=== PATIENT | male | born 1970 | race Native Hawaiian/Other Pacific Islander ===

== ENCOUNTER 2017-05-22 06:11 | Emergency (ER) | payer OTHER ==
[~2017-05-22] VITALS: Ht 167.6 cm; Wt 74.8 kg
[2017-05-22 06:14] VITALS: TEMP 98.5
[2017-05-22 07:05] LABS: POTASSIUM 3.8 mmol/L (3.6-5.2); SODIUM 134 mmol/L (136-145)
[2017-05-22 07:41] VITALS: BP 132/90
== END 2017-05-22 07:43 | disposition home or self-care (01) ==
LOC: ED 06:11
PROVIDERS: Specialist
DX: M10.9 Gout, unspecified (principal)
CPT/HCPCS: 36415; 80048; 84550; 99282

== ENCOUNTER 2020-09-07 13:08 | Outpatient (CLI) | payer OTHER | END 2020-09-07 19:07 | disposition home or self-care (01) | LOC: RAD 13:08 | DX: M54.5 Low back pain (principal) ==

== ENCOUNTER 2020-12-02 11:13 | Outpatient (CLI) | payer OTHER | END 2020-12-02 20:09 | disposition home or self-care (01) | LOC: RAD 11:13 | PROVIDERS: ATTEND Nurse Practitioner Family | DX: M79.671 Pain in right foot (principal) ==

== ENCOUNTER 2021-01-26 08:50 | Outpatient (CLI) | payer OTHER | END 2021-01-26 22:38 | disposition home or self-care (01) | LOC: INF 08:50 | PROVIDERS: ATTEND Internal Medicine | DX: Z23 Encounter for immunization (principal) | CPT/HCPCS: 96372 ==

== ENCOUNTER 2021-02-17 08:51 | Outpatient (CLI) | payer OTHER | END 2021-02-17 19:34 | disposition home or self-care (01) | LOC: INF | PROVIDERS: ATTEND Internal Medicine | DX: Z23 Encounter for immunization (principal) | CPT/HCPCS: 96372 ==

== ENCOUNTER 2022-10-31 08:48 | Outpatient (CLI) | payer OTHER | END 2022-10-31 18:57 | disposition home or self-care (01) | LOC: MRI 08:48 | PROVIDERS: ATTEND Nurse Practitioner | DX: M54.16 Radiculopathy, lumbar region (principal) ==

== ENCOUNTER 2022-12-26 15:22 | Outpatient (CLI) | payer OTHER | END 2022-12-26 19:00 | disposition home or self-care (01) | LOC: RAD 15:22 | PROVIDERS: ATTEND Neurological Surgery | DX: M54.16 Radiculopathy, lumbar region (principal) ==